=== PATIENT | female | born 1995 ===

== ENCOUNTER 2017-06-28 17:45 | Inpatient (IN) | payer OTHER ==
[2017-06-28] MEDS ORDERED: Acetaminophen TAB* 325 MG PO PRN (22:47)
[2017-06-28] MEDS ORDERED: Al Hydrox/Mg Hydrox/Simet LIQ* 30 ML UDC PO PRN (22:47)
[2017-06-28] MEDS ORDERED: LORazepam TAB(*) 1 MG PO PRN (22:50)
[2017-06-28] MEDS ORDERED: traZODone TAB* 50 MG TAB PO SCH (23:00)
[2017-06-29] MEDS: Vitamin THERAPEUTIC TAB PO SCH (12:01)
[2017-06-29] MEDS ORDERED: hydrOXYzine HCL TAB* 25 MG PO PRN (13:21)
[2017-06-29] MEDS: Sertraline* 50 MG TAB PO SCH (13:39)
[2017-06-29] MEDS: Melatonin (NF) ** ENTER STRENGTH IN LABEL DIRECTIONS PO SCH (21:15)
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
[2017-06-30] MEDS: Vitamin THERAPEUTIC TAB PO SCH (09:49)
[2017-06-30] MEDS: Sertraline* 50 MG TAB PO SCH (09:49)
[2017-06-30] MEDS: Melatonin (NF) ** ENTER STRENGTH IN LABEL DIRECTIONS PO SCH (20:41)
[2017-07-01] MEDS: Sertraline* 50 MG TAB PO SCH (09:04)
[2017-07-01] MEDS: Vitamin THERAPEUTIC TAB PO SCH (09:04)
--- NOTE | 2017-07-01 16:52 | PN ---
Subjective - Subjective Subjective: Cathy endorses reduced distress level, improving mood, restful sleep, absence of suicidal ideation or urges for sib. She denies side effects from Sertraline or Hydroxyzine. She describes good visit with relatives. Per staff, she is adherent to unit's routines. Objective - Appearance Appearance: Healthy Appearing Dysmorphic Features: No Hygiene: Normal Grooming: Well Kept - Behavior Psychomotor Activities: Normal Exhibits Abnormal Movement: No - Attitude and Relatedness Attitude and Relatedness: Cooperative Eye Contact: Fair - Speech Quality: Unpressured Latencies: Normal Quantity: Appropriate - Mood Patient's Decription of Mood: better - Affect Observed Affect: Fair Affect Consistent with: Euthymia - Thought Process Patient's Thought Process: Coherent, Goal Directed Thought Content: No Passive Wish, No Suicidal Planning, No Homicidal Ideation, No Paranoid Ideation - Sensorium Experiencing Hallucinations: No, Sensorium is Clear - Level of Consciousness Level of Consciousness: Alert Orientation: Yes Intact - Impulse Control Impulse Control: Intact - Insight and Judgement Insight and Judgement: Fair - Group Participation Particating in Group Activities: Yes - Medication Management Medication Management Adherence: Yes Assessment - Assessment Merits Inpatient Hospitalization: For Ongoing Evaluation, Consolidate Improvements, For Discharge Planning Inpatient DSM-IV Dx: MDD; Social phobia. Clinical Impression: Stabilizing in this structured setting, denying suicidality and vidal for safety, tolerating medications trials. She needs continued admission for consolidation. Plan - Plan Treatment Plan: Name: CATHY ROBB Birthdate: 1995 [id number] Medications: Current Medications Acetaminophen (Tylenol Tab*) 650 mg PO Q4H PRN PRN Reason: PAIN or TEMP > 101 F Al Hydrox/Mg Hydrox/Simethicone (Maalox Plus*) 30 ml PO Q4H PRN PRN Reason: INDIGESTION Hydroxyzine HCl (Atarax Tab*) 25 mg PO Q6H PRN PRN Reason: ANXIETY Lorazepam (Ativan Tab(*)) 1 mg PO Q4H PRN PRN Reason: AGITATION/ ANXIETY Melatonin (Melatonin (Nf)) 1 tab PO BEDTIME [facility] Last Admin: 06/30/17 20:41 Dose: Not Given Multivitamins (Theragran Tab*) 1 tab PO DAILY [facility] Last Admin: 07/01/17 09:04 Dose: 1 tab Sertraline HCl (Zoloft*) 50 mg PO DAILY [facility] Last Admin: 07/01/17 09:04 Dose: 50 mg - Discharge Plan Discharge Plan: Outpatient Follow Up Outpatient Program: [facility]
[2017-07-01] MEDS: Melatonin (NF) ** ENTER STRENGTH IN LABEL DIRECTIONS PO SCH (20:46)
[2017-07-02] MEDS: Vitamin THERAPEUTIC TAB PO SCH (08:54)
[2017-07-02] MEDS: Sertraline* 50 MG TAB PO SCH (08:54)
--- NOTE | 2017-07-02 10:56 | PN ---
Subjective - Subjective Date of Service: 07/02/17 Service Type: [id number] Hosp care 15 min low complexity Subjective: Dayna is being seen in coverage for NPP, Jolanta Harper. She is in good spirits today, denying SI and blaming the circumstances of her admission on the "environment I was living in." She is future-oriented, stating her intention to complete her move into a single-occupancy apartment on her grandfather's property in [place], [place]. She voices no acute complaints and states that she's looking forward to discharge. She appears to be well-liked and social with peers on the milieu. Objective - Appearance Appearance: Well Developed/Nourished Dysmorphic Features: No Hygiene: Normal Grooming: Well Kept - Behavior Psychomotor Activities: Normal Exhibits Abnormal Movement: No - Attitude and Relatedness Attitude and Relatedness: Cooperative Eye Contact: Good - Speech Quality: Unpressured Latencies: Normal Quantity: Appropriate - Mood Patient's Decription of Mood: "Good" - Affect Observed Affect: Good Affect Consistent with: Euthymia - Thought Process Patient's Thought Process: Coherent Thought Content: No Passive Wish, No Suicidal Planning, No Homicidal Ideation, No Paranoid Ideation - Sensorium Experiencing Hallucinations: No, Sensorium is Clear Type of Hallucinations: Visual: No, Auditory: No, Command: No - Level of Consciousness Level of Consciousness: Alert Orientation: Yes Intact, Yes Orientated to Time, Yes Orientated to Place, Yes Orientated to Person - Impulse Control Impulse Control: Intact - Insight and Judgement Insight and Judgement: Good - Group Participation Particating in Group Activities: Yes - Medication Management Medication Management Adherence: Yes Assessment - Assessment Merits Inpatient Hospitalization: Consolidate Improvements, Pending Safe DC Plan Inpatient DSM-IV Dx: MDD; Social phobia. Clinical Impression: 21 y.o. single, white female accepted as a transfer from [facility] in [place], [place] admitted on voluntary status due to depressed mood, SIB and an episode of attempting to hang herself. Plan - Plan Treatment Plan: Name: DAYNA ROBB Birthdate: 1995 [id number] The patient is taking sertraline and hydroxyzine. Continue inpatient treatment. Continued Medication Management: Start Medication Medications: Current Medications Acetaminophen (Tylenol Tab*) 650 mg PO Q4H PRN PRN Reason: PAIN or TEMP > 101 F Al Hydrox/Mg Hydrox/Simethicone (Maalox Plus*) 30 ml PO Q4H PRN PRN Reason: INDIGESTION Hydroxyzine HCl (Atarax Tab*) 25 mg PO Q6H PRN PRN Reason: ANXIETY Lorazepam (Ativan Tab(*)) 1 mg PO Q4H PRN PRN Reason: AGITATION/ ANXIETY Melatonin (Melatonin (Nf)) 1 tab PO BEDTIME [facility] Last Admin: 07/01/17 20:46 Dose: Not Given Multivitamins (Theragran Tab*) 1 tab PO DAILY [facility] Last Admin: 07/02/17 08:54 Dose: 1 tab Sertraline HCl (Zoloft*) 50 mg PO DAILY [facility] Last Admin: 07/02/17 08:54 Dose: 50 mg - Discharge Plan Discharge Plan: Inpatient Hospitalization
[2017-07-02] MEDS: Melatonin (NF) ** ENTER STRENGTH IN LABEL DIRECTIONS PO SCH (21:18)
[2017-07-03 07:41] VITALS: BP 120/79
[2017-07-03] MEDS: Sertraline* 50 MG TAB PO SCH (09:06)
[2017-07-03] MEDS: Vitamin THERAPEUTIC TAB PO SCH (09:06)
--- NOTE | 2017-07-03 11:33 | PN ---
MHU: Group Therapy Note - Service Type Service Type: [id number] Group Psychotherapy - Cognitive Behavioral Group Therapy ( CBT):Patient was attentive and participatory in CBT programming this morning, and remained in good behavioral control. Patient expressed positive insights regarding relevant treatment interventions and goals.
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
== END 2017-07-03 13:59 | disposition home or self-care (01) | DRG 754 ==
LOC: BSU 21:44
PROVIDERS: ADMIT Psychiatry & Neurology Psychiatry; ATTEND Psychiatry & Neurology Psychiatry
DX: F32.9 Major depressive disorder, single episode, unspecified (principal); F40.10 Social phobia, unspecified; T14.91XA Suicide attempt, initial encounter; X83.8XXA Intentional self-harm by other specified means, initial encounter; Y92.9 Unspecified place or not applicable; Z81.8 Family history of other mental and behavioral disorders; Z81.1 Family history of alcohol abuse and dependence; Z62.819 Personal history of unspecified abuse in childhood
CPT/HCPCS: 90853; 99222; 99231; 99238; A9270-GY